=== PATIENT | female | born 1970 | race African-American/Black ===

== ENCOUNTER 2017-04-16 22:20 | Emergency (ER) | payer SELFPAY ==
[~2017-04-16] VITALS: Ht 160 cm; Wt 170.0 kg
[~2017-04-16 22:20] MED LIST: DEPO SHOT
[2017-04-17] MEDS ORDERED: HYDROCODONE/ACETAMINOPHEN 5-325 MG TABLET PO ONE (01:30)
[2017-04-17] MEDS ORDERED: NAPROXEN 250 MG TABLET PO ONE (01:30)
[2017-04-17 04:15] VITALS: BP 135/69
== END 2017-04-17 04:28 | disposition home or self-care (01) ==
LOC: EMS 22:24
DX: M17.0 Bilateral primary osteoarthritis of knee (principal); Z88.0 Allergy status to penicillin
CPT/HCPCS: 93971; 99284

== ENCOUNTER 2017-05-18 17:55 | Emergency (ER) | payer SELFPAY ==
[~2017-05-18] VITALS: Ht 160 cm; Wt 165.9 kg
[2017-05-18 18:38] LABS: BASOPHILS % (AUTO) 1.5 % (0.0-2.0); EOSINOPHILS % (AUTO) 2.4 % (1.0-6.0); HEMATOCRIT 31.7 % (36-46); HEMOGLOBIN 10.7 g/dL (12.0-16.0); LYMPHOCYTES # (AUTO) 2.4 K/uL (1.0-4.8); LYMPHOCYTES % (AUTO) 33.4 % (22.0-44.0); MEAN CORPUSCULAR HEMOGLOBIN 26.4 pg (26.0-34.0); MEAN CORPUSCULAR HGB CONC 33.9 G/dL (31.0-37.0); MEAN CORPUSCULAR VOLUME 78 fL (80-100); MONOCYTES # (AUTO) 0.7 K/uL (0.1-1.0); MONOCYTES % (AUTO) 9.7 % (2.0-9.0); NEUTROPHILS # (AUTO) 3.8 K/uL (1.8-7.7); PLATELET COUNT (AUTO) 272 K/uL (150-450); RED BLOOD CELL COUNT(AUTO) 4.07 MIL/uL (4.00-5.20); RED CELL DISTRIBUTION WIDTH 15.5 % (11.5-14.5)
[2017-05-18 18:48] LABS: ANION GAP 10 mmol/L (8-16); CALCIUM, TOTAL 9.1 mg/dL (8.8-10.5); CARBON DIOXIDE 29 mmol/L (22-29); CHLORIDE 102 mmol/L (98-107); CREATININE 0.95 mg/dL (0.60-1.30); GLOMERULAR FILTR. RATE CALC > 60 mL/min (>60); GLUCOSE,RANDOM 97 mg/dL (70-110); POTASSIUM 3.4 mmol/L (3.5-5.1); SODIUM SERUM 141 mmol/L (136-145); UREA NITROGEN, BLOOD 11 mg/dL (7-18)
[2017-05-18 19:00] VITALS: BP 123/70
[2017-05-18 19:13] LABS: ALANINE AMINOTRANSFERASE 17 U/L (12-78); ALBUMIN 3.3 g/dL (3.4-5.0); ALKALINE PHOSPHATASE 58 U/L (46-116); ASPARTATE AMINOTRANSFERASE 16 U/L (15-37); BILIRUBIN,TOTAL 0.4 mg/dL (0.1-1.0); CREATINE KINASE, TOTAL 95 U/L (26-192); TOTAL PROTEIN, SERUM 7.7 g/dL (6.4-8.2)
[2017-05-18 19:20] LABS: CREATINE KINASE MB < 0.5 ng/mL (0-5)
== END 2017-05-18 19:42 | disposition home or self-care (01) ==
LOC: EMS 18:16
DX: R07.89 Other chest pain (principal); G62.9 Polyneuropathy, unspecified; Z88.0 Allergy status to penicillin
CPT/HCPCS: 70450; 93005; 99285

== ENCOUNTER 2024-01-16 14:40 | Emergency (ER) | payer OTHER ==
[~2024-01-16] VITALS: Ht 165.1 cm; Wt 90.9 kg
[~2024-01-16 14:40] MED LIST changes: +BIRTH CONTROL PO; -DEPO SHOT; +OXYB5TAB20 PO
[2024-01-16] MEDS ORDERED: MULT-1390 PO (14:47)
[2024-01-16 14:52] VITALS: BP 117/71; PULSE 60; RESP 18; TEMP 98.5; O2SAT 100
[2024-01-16 15:27] LABS: BASOPHILS % (AUTO) 0.8 % (0.0-2.0); EOSINOPHILS % (AUTO) 3.1 % (1.0-6.0); HEMATOCRIT 35.2 % (36-46); HEMOGLOBIN 11.6 g/dL (12.0-16.0); LYMPHOCYTES % (AUTO) 38.6 % (22.0-44.0); MEAN CORPUSCULAR HEMOGLOBIN 28.2 pg (26.0-34.0); MEAN CORPUSCULAR VOLUME 86 fL (80-100); MONOCYTES # (AUTO) 0.4 K/uL (0.1-1.0); MONOCYTES % (AUTO) 7.2 % (2.0-9.0); NEUTROPHILS # (AUTO) 2.6 K/uL (1.8-7.7); NEUTROPHILS % (AUTO) 50.3 % (40.0-70.0); PLATELET COUNT (AUTO) 220 K/uL (150-450); RED BLOOD CELL COUNT(AUTO) 4.11 MIL/uL (4.00-5.20); RED CELL DISTRIBUTION WIDTH 15.9 % (11.5-14.5); WHITE BLOOD COUNT (AUTO) 5.3 K/uL (4.5-11.0)
[2024-01-16 15:36] LABS: ANION GAP 5 mmol/L (8-16); CALCIUM, TOTAL 9.6 mg/dL (8.8-10.5); CARBON DIOXIDE 31 mmol/L (22-29); CHLORIDE 101 mmol/L (98-107); GLOMERULAR FILTR. RATE CALC > 60 mL/min (>60); GLUCOSE,RANDOM 89 mg/dL (70-110); SODIUM SERUM 137 mmol/L (136-145); UREA NITROGEN, BLOOD 18 mg/dL (7-18)
[2024-01-16 15:41] LABS: COVID AG,FIA SOURCE NASAL SWAB
[2024-01-16 15:43] LABS: ALANINE AMINOTRANSFERASE 45 U/L (12-78); ALBUMIN 3.5 g/dL (3.4-5.0); ALKALINE PHOSPHATASE 71 U/L (46-116); ASPARTATE AMINOTRANSFERASE 37 U/L (15-37); BILIRUBIN,TOTAL 0.4 mg/dL (0.1-1.0); CREATINE KINASE, TOTAL ONLY 71 U/L (26-192); TOTAL PROTEIN, SERUM 8.2 g/dL (6.4-8.2)
[2024-01-16 15:45] LABS: TROPONIN I-HIGH SENSITIVITY 4 ng/L (<51)
[2024-01-16 15:57] LABS: SARS-COV2 (COVID) ANTIGEN,FIA Negative (Negative)
== END 2024-01-16 16:38 | disposition home or self-care (01) ==
LOC: EMS 14:45
DX: R53.1 Weakness (principal); Z98.84 Bariatric surgery status; Z88.0 Allergy status to penicillin; Z20.822 Contact with and (suspected) exposure to COVID-19
CPT/HCPCS: 80053; 82550; 83735; 84484; 84703; 85025; 93005; 99284